=== PATIENT | female | born 1945 | race Caucasian/White ===

== ENCOUNTER 2017-02-15 04:28 | Inpatient (IN) | payer MEDICARE, OTHER ==
[~2017-02-15] VITALS: Ht 167.6 cm; Wt 127.7 kg
[~2017-02-15 04:28] MED LIST: ASPI-496 PO; CLOP75TA52 PO
[2017-02-15] MEDS ORDERED: ALBUTEROL/IPRATROPIUM 2.5MG/0.5MG, 3 ML NPPB ONE (05:00)
[2017-02-15] MEDS ORDERED: SODIUM CHLORIDE FLUSH 10ML SYR IVF ONE (05:00)
[2017-02-15] MEDS ORDERED: CHLO25TA PO (05:10)
[2017-02-15] MEDS ORDERED: LOSA100T6 PO (05:10)
[2017-02-15] MEDS ORDERED: TRAM50TA2 PO (05:10)
[2017-02-15] MEDS ORDERED: MULT-717 PO (05:10)
[2017-02-15] MEDS ORDERED: METH500T7 PO (05:10)
[2017-02-15] MEDS ORDERED: CHLO1CAP PO (05:10)
[2017-02-15] MEDS ORDERED: ATOR40TA78 PO (05:10)
[2017-02-15] MEDS ORDERED: UBID100C41 PO (05:10)
[2017-02-15] MEDS ORDERED: ALLO300T PO (05:10)
[2017-02-15] MEDS ORDERED: CARV12.52 PO (05:10)
[2017-02-15] MEDS ORDERED: POTA20TA14 PO (05:10)
[2017-02-15] MEDS ORDERED: OMEP-110 PO (05:10)
[2017-02-15 05:20] LABS: HEMATOCRIT 36.6 % (34.6-47.8); HEMOGLOBIN 11.7 g/dL (11.7-16.4); WHITE BLOOD COUNT 7.1 x10^3/uL (3.4-10)
[2017-02-15 05:30] LABS: BLOOD UREA NITROGEN 25 mg/dL (7-18)
[2017-02-15] MEDS ORDERED: SODIUM CHLORIDE 0.9% 1,000 ML IV ONE (05:49)
[2017-02-15 06:00] LABS: IS PT STATUS REG ER OR PRE ER? YES
[2017-02-15] MEDS ORDERED: CEFTRIAXONE PMX 1GM/50ML 50 ML IV ONE (07:00)
[2017-02-15] MEDS ORDERED: ENALAPRILAT 1.25 MG/ML, 2ML IVPush PRN (08:30)
[2017-02-15] MEDS ORDERED: OXYcodone IR 5MG TABLET PO PRN (08:30)
[2017-02-15] MEDS ORDERED: hydrALAzine 20 MG/ML, 1ML IVPush PRN (08:30)
[2017-02-15] MEDS ORDERED: ACETAMINOPHEN 325 MG TABLET PO PRN (08:30)
[2017-02-15] MEDS ORDERED: ONDANSETRON 2MG/ML, 2ML IVPush PRN (08:30)
[2017-02-15] MEDS ORDERED: POLYETHYLENE GLYCOL 17 GM PACKET PO PRN (08:30)
[2017-02-15 08:32] VITALS: BP 136/80
[2017-02-15] MEDS ORDERED: TEMPLATE NON-FORMULARY MED. (Ubidecarenone** (Co Q-10**) 100 MG) PO SCH (09:00)
[2017-02-15] MEDS: CLOPIDOGREL 75 MG TABLET PO SCH (09:00)
[2017-02-15] MEDS: CHLORTHALIDONE 25 MG TABLET PO SCH (09:00)
[2017-02-15] MEDS ORDERED: LOSARTAN 50MG TABLET PO SCH (09:00)
[2017-02-15] MEDS: FUROSEMIDE 20 MG/2 ML IV SCH ×2 (11:06→17:05)
[2017-02-15] MEDS: HEPARIN 5,000 UNITS/ML, 1ML SQ SCH ×2 (11:06→23:32)
[2017-02-15] MEDS: FLUTICASONE/VILANTEROL 200-25MCG/INH INH SCH (11:07)
[2017-02-15] MEDS: OMEPRAZOLE 20 MG CAPSULE.DR PO SCH (11:07)
[2017-02-15] MEDS: POTASSIUM CHLORIDE 20 MEQ TAB.ER.PRT PO SCH (11:07)
[2017-02-15] MEDS: SENNA/DOCUSATE TABLET PO SCH (11:07)
[2017-02-15] MEDS: CARVEDILOL 12.5 MG TABLET PO SCH ×2 (11:07→21:00)
[2017-02-15] MEDS: MULTIVITAMINS/MINERALS TABLET PO SCH (11:08)
[2017-02-15] MEDS: ALLOPURINOL 300 MG TABLET PO SCH (11:08)
[2017-02-15] MEDS: METHOCARBAMOL 500 MG TABLET PO SCH ×3 (11:08→21:00)
[2017-02-15] MEDS ORDERED: LOSA50TA6 PO (11:28)
[2017-02-15 13:46] LABS: IS PT STATUS REG ER OR PRE ER? NO
[2017-02-15] MEDS ORDERED: MAGNESIUM SULFATE PMX 2GM/50ML 50 ML IV ONE (14:30)
[2017-02-15] MEDS: [UNRECOGNIZED DRUG - OTHER] PO SCH ×2 (16:00→21:00)
[2017-02-15] MEDS: CHLORDIAZEPOXIDE PO SCH ×2 (16:00→21:00)
[2017-02-15 19:39] LABS: IS PT STATUS REG ER OR PRE ER? NO
[2017-02-15 20:54] VITALS: BP 109/64
[2017-02-15] MEDS: ATORVASTATIN 40 MG TABLET PO SCH (21:00)
[2017-02-16 03:05] VITALS: BP 103/75
[2017-02-16 04:53] LABS: BLOOD UREA NITROGEN 30 mg/dL (7-18)
[2017-02-16 04:54] LABS: HEMATOCRIT 38.1 % (34.6-47.8); HEMOGLOBIN 11.8 g/dL (11.7-16.4); WHITE BLOOD COUNT 8.3 x10^3/uL (3.4-10)
[2017-02-16 04:56] LABS: ASPARTATE AMINO TRANSFERASE 5 U/L (15-37)
[2017-02-16] MEDS: [UNRECOGNIZED DRUG - OTHER] PO SCH ×4 (06:00→21:00)
[2017-02-16] MEDS ORDERED: PNEUMOCOCCAL 23 VACCINE IM-VACC ONE (06:00)
[2017-02-16] MEDS ORDERED: FLU VACC QS2017-18 (36MOS+) UP/PF 0.5 ML IM-VACC ONE (06:00)
[2017-02-16] MEDS: CHLORDIAZEPOXIDE PO SCH ×4 (06:00→21:00)
[2017-02-16] MEDS: HEPARIN 5,000 UNITS/ML, 1ML SQ SCH ×3 (06:08→22:17)
[2017-02-16 06:27] VITALS: BP 97/55
[2017-02-16 08:20] VITALS: BP 105/63
[2017-02-16] MEDS: ALLOPURINOL 300 MG TABLET PO SCH (08:22)
[2017-02-16] MEDS: FLUTICASONE/VILANTEROL 200-25MCG/INH INH SCH (08:22)
[2017-02-16] MEDS: SENNA/DOCUSATE TABLET PO SCH (08:22)
[2017-02-16] MEDS: OMEPRAZOLE 20 MG CAPSULE.DR PO SCH (08:23)
[2017-02-16] MEDS: MULTIVITAMINS/MINERALS TABLET PO SCH (08:23)
[2017-02-16] MEDS: POTASSIUM CHLORIDE 20 MEQ TAB.ER.PRT PO SCH (08:23)
[2017-02-16] MEDS: CLOPIDOGREL 75 MG TABLET PO SCH (08:23)
[2017-02-16] MEDS: FUROSEMIDE 20 MG/2 ML IV SCH ×2 (08:23→17:55)
[2017-02-16] MEDS: CARVEDILOL 12.5 MG TABLET PO SCH ×2 (08:23→22:18)
[2017-02-16] MEDS: METHOCARBAMOL 500 MG TABLET PO SCH (08:23)
[2017-02-16] MEDS: CHLORTHALIDONE 25 MG TABLET PO SCH (08:24)
[2017-02-16] MEDS ORDERED: LOSARTAN 50MG TABLET PO SCH (09:00)
[2017-02-16] MEDS ORDERED: FUROSEMIDE 20 MG/2 ML IV ONE ×2 (10:00→16:30)
[2017-02-16] MEDS ORDERED: NALOXONE 0.4 MG/ML, 1ML ONE (11:07)
[2017-02-16] MEDS ORDERED: MIDAZOLAM 1 MG/ML, 5ML ONE (11:08)
[2017-02-16] MEDS ORDERED: PROPOFOL 10 MG/ML, 100ML IV ONE (11:08)
[2017-02-16] MEDS ORDERED: ETOMIDATE 20 MG/10 ML ONE (11:08)
[2017-02-16] MEDS ORDERED: DOXYCYCLINE 100 MG in DEXTROSE 5% 250 ML IV SCH (13:30)
[2017-02-16] MEDS: GUAIFENESIN ER 600 MG TABLET PO SCH ×2 (15:22→22:18)
[2017-02-16 16:06] VITALS: BP 115/74
[2017-02-16] MEDS ORDERED: FUROSEMIDE 40 MG/4 ML ONE (16:14)
[2017-02-16] MEDS ORDERED: NALOXONE 1 MG/ML, 2ML IVPush ONE (16:30)
[2017-02-16] MEDS ORDERED: NALOXONE 0.4 MG/ML, 1ML IVPush ONE (16:30)
[2017-02-16 16:31] LABS: ABG COLLECTION SITE RIGHT RADIAL; COLLATERAL CIRCULATION TESTING NORMAL
[2017-02-16 16:51] LABS: BLOOD UREA NITROGEN 30 mg/dL (7-18)
[2017-02-16 16:56] LABS: IS PT STATUS REG ER OR PRE ER? NO
[2017-02-16] MEDS ORDERED: NOREPINEPHRINE 1 MG/ML, 4ML ONE (17:13)
[2017-02-16] MEDS ORDERED: PHARMACY MAY ADJ FOR RENAL FX MC SCH (17:30)
[2017-02-16] MEDS ORDERED: LIDOCAINE-MPF 1%, 2ML ENDO PRN (17:30)
[2017-02-16] MEDS ORDERED: ACETAMINOPHEN 650 MG/20.3 ML UDC NG PRN (17:30)
[2017-02-16] MEDS: SODIUM CHLORIDE 0.9% 1,000 ML IV SCH (17:50)
[2017-02-16] MEDS: AMPICILLIN/SULBACTAM 3 GM in SODIUM CHLORIDE 0.9% 100 ML IV SCH ×2 (17:56→23:11)
[2017-02-16] MEDS: methylPREDNISolone SOD SUCC 125 MG/2 ML IVPush SCH (17:57)
[2017-02-16] MEDS: ALBUTEROL/IPRATROPIUM 2.5MG/0.5MG, 3 ML INLINE SCH ×2 (18:43→23:05)
[2017-02-16] MEDS: ATORVASTATIN 40 MG TABLET PO SCH (21:00)
[2017-02-16] MEDS: LOSARTAN 50MG TABLET PO SCH (22:18)
[2017-02-16] MEDS: PROPOFOL 100 ML IV PRN (22:26)
[2017-02-16] MEDS: morphine SULFATE 10 MG/ML, 1ML IVPush PRN (23:11)
[2017-02-17] MEDS: methylPREDNISolone SOD SUCC 125 MG/2 ML IVPush SCH ×3 (01:24→17:17)
[2017-02-17] MEDS: SODIUM CHLORIDE 0.9% 1,000 ML IV SCH (01:24)
[2017-02-17] MEDS: ALBUTEROL/IPRATROPIUM 2.5MG/0.5MG, 3 ML INLINE SCH ×6 (02:16→22:37)
[2017-02-17] MEDS: morphine SULFATE 10 MG/ML, 1ML IVPush PRN ×2 (04:25→16:30)
[2017-02-17 05:13] LABS: ABG COLLECTION SITE LEFT RADIAL; COLLATERAL CIRCULATION TESTING NORMAL
[2017-02-17 05:18] LABS: HEMATOCRIT 35.2 % (34.6-47.8); HEMOGLOBIN 11.3 g/dL (11.7-16.4); WHITE BLOOD COUNT 7.9 x10^3/uL (3.4-10)
[2017-02-17 05:27] LABS: BLOOD UREA NITROGEN 30 mg/dL (7-18)
[2017-02-17] MEDS: AMPICILLIN/SULBACTAM 3 GM in SODIUM CHLORIDE 0.9% 100 ML IV SCH ×4 (05:48→23:21)
[2017-02-17] MEDS: HEPARIN 5,000 UNITS/ML, 1ML SQ SCH ×3 (05:58→21:57)
[2017-02-17] MEDS: [UNRECOGNIZED DRUG - OTHER] PO SCH (05:58)
[2017-02-17] MEDS: CHLORDIAZEPOXIDE PO SCH (05:58)
[2017-02-17] MEDS: PROPOFOL 100 ML IV PRN ×4 (07:08→21:58)
[2017-02-17] MEDS ORDERED: OMEPRAZOLE 20 MG CAPSULE.DR PO SCH (07:30)
[2017-02-17] MEDS ORDERED: OMEPRAZOLE/SOD. BICARB. PACKET PO SCH (07:30)
[2017-02-17] MEDS: FLUTICASONE/VILANTEROL 200-25MCG/INH INH SCH (08:54)
[2017-02-17] MEDS: ALLOPURINOL 300 MG TABLET PO SCH (08:55)
[2017-02-17] MEDS: CLOPIDOGREL 75 MG TABLET PO SCH (08:55)
[2017-02-17] MEDS: CARVEDILOL 12.5 MG TABLET PO SCH ×2 (08:55→20:29)
[2017-02-17] MEDS: LOSARTAN 50MG TABLET PO SCH ×2 (08:56→20:29)
[2017-02-17] MEDS: SENNA 176 MG/5 ML ORAL SOL PO SCH (08:56)
[2017-02-17] MEDS: POTASSIUM CHLORIDE 20 MEQ PACKET NG SCH (08:56)
[2017-02-17] MEDS: DOCUSATE 50 MG/5 ML, 10ML UDC PO SCH (08:56)
[2017-02-17] MEDS ORDERED: MAGNESIUM SULFATE 1 GM, THIAMINE 100 MG, FOLIC ACID 1 MG, MVI ADULT 10 ML in SODIUM CHL... IV SCH (09:00)
[2017-02-17] MEDS ORDERED: DIAZEPAM 5 MG/ML, 10ML VIAL IVPush SCH (09:00)
[2017-02-17] MEDS ORDERED: MULTIVITAMIN LIQUID NG SCH (09:00)
[2017-02-17] MEDS ORDERED: GUAIFENESIN 100 MG/5 ML, 10ML UDC PO SCH (09:00)
[2017-02-17] MEDS ORDERED: POTASSIUM CHLORIDE 20 MEQ PACKET PO SCH (09:00)
[2017-02-17] MEDS: PANTOPRAZOLE 40 MG IV IVPush SCH (09:26)
[2017-02-17] MEDS: GUAIFENESIN 100 MG/5 ML, 10ML UDC NG SCH ×3 (09:27→20:29)
[2017-02-17] MEDS: SCOPOLAMINE 1MG PATCH TD SCH (10:09)
[2017-02-17 17:00] VITALS: BP 127/54
[2017-02-17] MEDS: ATORVASTATIN 40 MG TABLET PO SCH (20:29)
[2017-02-18] MEDS: PROPOFOL 100 ML IV PRN ×8 (00:35→23:32)
[2017-02-18] MEDS: methylPREDNISolone SOD SUCC 125 MG/2 ML IVPush SCH ×3 (01:37→18:09)
[2017-02-18] MEDS: morphine SULFATE 10 MG/ML, 1ML IVPush PRN ×2 (01:41→21:57)
[2017-02-18] MEDS ORDERED: SODIUM CHLORIDE 0.9% 1,000 ML IV SCH ×2 (02:00→08:30)
[2017-02-18] MEDS: ALBUTEROL/IPRATROPIUM 2.5MG/0.5MG, 3 ML INLINE SCH ×6 (02:42→22:10)
[2017-02-18 04:36] LABS: ABG COLLECTION SITE LEFT RADIAL; COLLATERAL CIRCULATION TESTING NORMAL
[2017-02-18 04:42] LABS: HEMATOCRIT 35.1 % (34.6-47.8); HEMOGLOBIN 11.1 g/dL (11.7-16.4); WHITE BLOOD COUNT 10.2 x10^3/uL (3.4-10)
[2017-02-18 04:52] LABS: BLOOD UREA NITROGEN 34 mg/dL (7-18)
[2017-02-18 05:00] VITALS: BP 127/58
[2017-02-18] MEDS: AMPICILLIN/SULBACTAM 3 GM in SODIUM CHLORIDE 0.9% 100 ML IV SCH ×4 (05:49→23:30)
[2017-02-18] MEDS: HEPARIN 5,000 UNITS/ML, 1ML SQ SCH ×3 (05:49→21:59)
[2017-02-18] MEDS: FLUTICASONE/VILANTEROL 200-25MCG/INH INH SCH (09:00)
[2017-02-18] MEDS: PANTOPRAZOLE 40 MG IV IVPush SCH (09:46)
[2017-02-18] MEDS: DOCUSATE 50 MG/5 ML, 10ML UDC PO SCH (09:47)
[2017-02-18] MEDS: GUAIFENESIN 100 MG/5 ML, 10ML UDC NG SCH ×3 (09:47→21:09)
[2017-02-18] MEDS: CARVEDILOL 12.5 MG TABLET PO SCH ×2 (09:47→21:10)
[2017-02-18] MEDS: POTASSIUM CHLORIDE 20 MEQ PACKET NG SCH (09:47)
[2017-02-18] MEDS: LOSARTAN 50MG TABLET PO SCH ×2 (09:48→21:10)
[2017-02-18] MEDS: CLOPIDOGREL 75 MG TABLET PO SCH (09:49)
[2017-02-18] MEDS: SENNA 176 MG/5 ML ORAL SOL PO SCH (09:50)
[2017-02-18] MEDS: ALLOPURINOL 300 MG TABLET PO SCH (09:50)
[2017-02-18] MEDS: ATORVASTATIN 40 MG TABLET PO SCH (21:10)
[2017-02-19] MEDS: methylPREDNISolone SOD SUCC 125 MG/2 ML IVPush SCH ×3 (00:37→17:14)
[2017-02-19] MEDS: PROPOFOL 100 ML IV PRN ×6 (01:22→22:54)
[2017-02-19] MEDS: ALBUTEROL/IPRATROPIUM 2.5MG/0.5MG, 3 ML INLINE SCH ×6 (02:20→22:02)
[2017-02-19] MEDS: morphine SULFATE 10 MG/ML, 1ML IVPush PRN ×2 (02:57→08:22)
[2017-02-19 04:25] LABS: ABG COLLECTION SITE RIGHT RADIAL
[2017-02-19 04:26] LABS: COLLATERAL CIRCULATION TESTING NORMAL
[2017-02-19 04:27] LABS: HEMATOCRIT 36.3 % (34.6-47.8); HEMOGLOBIN 11.5 g/dL (11.7-16.4); WHITE BLOOD COUNT 8.8 x10^3/uL (3.4-10)
[2017-02-19 04:41] VITALS: BP 138/65
[2017-02-19 04:52] LABS: BLOOD UREA NITROGEN 39 mg/dL (7-18)
[2017-02-19] MEDS: AMPICILLIN/SULBACTAM 3 GM in SODIUM CHLORIDE 0.9% 100 ML IV SCH ×4 (05:27→23:23)
[2017-02-19] MEDS: HEPARIN 5,000 UNITS/ML, 1ML SQ SCH ×3 (05:27→22:21)
[2017-02-19] MEDS: SENNA 176 MG/5 ML ORAL SOL PO SCH (08:22)
[2017-02-19] MEDS: GUAIFENESIN 100 MG/5 ML, 10ML UDC NG SCH ×3 (08:22→21:08)
[2017-02-19] MEDS: PANTOPRAZOLE 40 MG IV IVPush SCH (08:22)
[2017-02-19] MEDS: DOCUSATE 50 MG/5 ML, 10ML UDC PO SCH (08:22)
[2017-02-19] MEDS: LOSARTAN 50MG TABLET PO SCH ×2 (08:23→21:09)
[2017-02-19] MEDS: CARVEDILOL 12.5 MG TABLET PO SCH ×2 (08:23→21:08)
[2017-02-19] MEDS: POTASSIUM CHLORIDE 20 MEQ PACKET NG SCH (08:23)
[2017-02-19] MEDS: CLOPIDOGREL 75 MG TABLET PO SCH (08:23)
[2017-02-19] MEDS: ALLOPURINOL 300 MG TABLET PO SCH (08:25)
[2017-02-19] MEDS ORDERED: FUROSEMIDE 20 MG/2 ML IV ONE (11:30)
[2017-02-19] MEDS: ATORVASTATIN 40 MG TABLET PO SCH (21:08)
[2017-02-19] MEDS: METHOCARBAMOL 500 MG TABLET PO PRN (21:09)
[2017-02-20] MEDS: methylPREDNISolone SOD SUCC 125 MG/2 ML IVPush SCH ×3 (01:21→17:08)
[2017-02-20] MEDS: ALBUTEROL/IPRATROPIUM 2.5MG/0.5MG, 3 ML INLINE SCH ×6 (02:24→22:21)
[2017-02-20] MEDS: PROPOFOL 100 ML IV PRN ×6 (03:14→21:59)
[2017-02-20 04:00] VITALS: BP 129/63
[2017-02-20 04:41] LABS: HEMATOCRIT 37.1 % (34.6-47.8); HEMOGLOBIN 11.9 g/dL (11.7-16.4); WHITE BLOOD COUNT 9.3 x10^3/uL (3.4-10)
[2017-02-20 04:44] LABS: ABG COLLECTION SITE LEFT RADIAL; COLLATERAL CIRCULATION TESTING NORMAL
[2017-02-20 04:52] LABS: BLOOD UREA NITROGEN 51 mg/dL (7-18)
[2017-02-20] MEDS: morphine SULFATE 10 MG/ML, 1ML IVPush PRN (05:13)
[2017-02-20] MEDS: AMPICILLIN/SULBACTAM 3 GM in SODIUM CHLORIDE 0.9% 100 ML IV SCH ×3 (05:13→18:25)
[2017-02-20] MEDS: HEPARIN 5,000 UNITS/ML, 1ML SQ SCH ×3 (06:15→22:05)
[2017-02-20] MEDS: FUROSEMIDE 20 MG/2 ML IV SCH ×2 (08:43→21:32)
[2017-02-20] MEDS: CARVEDILOL 12.5 MG TABLET PO SCH ×2 (08:43→21:33)
[2017-02-20] MEDS: DOCUSATE 50 MG/5 ML, 10ML UDC PO SCH (08:43)
[2017-02-20] MEDS: GUAIFENESIN 100 MG/5 ML, 10ML UDC NG SCH ×3 (08:43→21:32)
[2017-02-20] MEDS: ALLOPURINOL 300 MG TABLET PO SCH (08:43)
[2017-02-20] MEDS: LOSARTAN 50MG TABLET PO SCH ×2 (08:44→21:33)
[2017-02-20] MEDS: SENNA 176 MG/5 ML ORAL SOL PO SCH (08:44)
[2017-02-20] MEDS: PANTOPRAZOLE 40 MG IV IVPush SCH (08:44)
[2017-02-20] MEDS: CLOPIDOGREL 75 MG TABLET PO SCH (08:45)
[2017-02-20] MEDS: SCOPOLAMINE 1MG PATCH TD SCH (08:45)
[2017-02-20] MEDS: ALBUMIN HUMAN 25% 100 ML IV SCH ×2 (08:46→22:05)
[2017-02-20] MEDS: POTASSIUM CHLORIDE 20 MEQ PACKET PO SCH ×2 (08:47→22:05)
[2017-02-20] MEDS: ATORVASTATIN 40 MG TABLET PO SCH (21:33)
[2017-02-21] MEDS: AMPICILLIN/SULBACTAM 3 GM in SODIUM CHLORIDE 0.9% 100 ML IV SCH ×5 (00:37→23:23)
[2017-02-21] MEDS: methylPREDNISolone SOD SUCC 125 MG/2 ML IVPush SCH ×3 (00:38→18:21)
[2017-02-21] MEDS: PROPOFOL 100 ML IV PRN ×8 (01:05→22:18)
[2017-02-21] MEDS: ALBUTEROL/IPRATROPIUM 2.5MG/0.5MG, 3 ML INLINE SCH ×6 (02:52→22:21)
[2017-02-21] MEDS: morphine SULFATE 10 MG/ML, 1ML IVPush PRN ×2 (04:27→20:37)
[2017-02-21 05:17] LABS: ABG COLLECTION SITE LEFT RADIAL; COLLATERAL CIRCULATION TESTING NORMAL
[2017-02-21] MEDS: HEPARIN 5,000 UNITS/ML, 1ML SQ SCH ×3 (05:34→22:07)
[2017-02-21 05:50] LABS: HEMATOCRIT 36.6 % (34.6-47.8); HEMOGLOBIN 11.5 g/dL (11.7-16.4); WHITE BLOOD COUNT 6.7 x10^3/uL (3.4-10)
[2017-02-21 05:57] LABS: BLOOD UREA NITROGEN 59 mg/dL (7-18)
[2017-02-21] MEDS: FUROSEMIDE 20 MG/2 ML IV SCH ×2 (09:47→22:06)
[2017-02-21] MEDS: CLOPIDOGREL 75 MG TABLET PO SCH (09:47)
[2017-02-21] MEDS: CARVEDILOL 12.5 MG TABLET PO SCH ×2 (09:48→22:06)
[2017-02-21] MEDS: ALLOPURINOL 300 MG TABLET PO SCH (09:48)
[2017-02-21] MEDS: LOSARTAN 50MG TABLET PO SCH ×2 (09:49→22:06)
[2017-02-21] MEDS: GUAIFENESIN 100 MG/5 ML, 10ML UDC NG SCH ×3 (09:49→22:07)
[2017-02-21] MEDS: ALBUMIN HUMAN 25% 100 ML IV SCH ×2 (09:52→20:37)
[2017-02-21] MEDS: DOCUSATE 50 MG/5 ML, 10ML UDC PO SCH (09:53)
[2017-02-21] MEDS: SENNA 176 MG/5 ML ORAL SOL PO SCH (09:53)
[2017-02-21] MEDS: PANTOPRAZOLE 40 MG IV IVPush SCH (10:24)
[2017-02-21] MEDS: ATORVASTATIN 40 MG TABLET PO SCH (22:06)
[2017-02-22] MEDS: methylPREDNISolone SOD SUCC 125 MG/2 ML IVPush SCH ×3 (01:43→17:49)
[2017-02-22] MEDS: PROPOFOL 100 ML IV PRN ×7 (01:43→21:18)
[2017-02-22] MEDS: ALBUTEROL/IPRATROPIUM 2.5MG/0.5MG, 3 ML INLINE SCH ×6 (03:00→22:08)
[2017-02-22 05:00] VITALS: BP 123/67
[2017-02-22 05:02] LABS: ABG COLLECTION SITE RIGHT RADIAL; COLLATERAL CIRCULATION TESTING NORMAL
[2017-02-22 05:10] LABS: HEMATOCRIT 36.5 % (34.6-47.8); HEMOGLOBIN 11.5 g/dL (11.7-16.4); WHITE BLOOD COUNT 8.1 x10^3/uL (3.4-10)
[2017-02-22 05:14] LABS: BLOOD UREA NITROGEN 63 mg/dL (7-18)
[2017-02-22] MEDS: AMPICILLIN/SULBACTAM 3 GM in SODIUM CHLORIDE 0.9% 100 ML IV SCH ×4 (05:22→23:15)
[2017-02-22] MEDS: HEPARIN 5,000 UNITS/ML, 1ML SQ SCH ×3 (06:03→21:45)
[2017-02-22] MEDS: DOCUSATE 50 MG/5 ML, 10ML UDC PO SCH (09:04)
[2017-02-22] MEDS: CARVEDILOL 12.5 MG TABLET PO SCH ×2 (09:04→21:46)
[2017-02-22] MEDS: GUAIFENESIN 100 MG/5 ML, 10ML UDC NG SCH ×3 (09:04→21:46)
[2017-02-22] MEDS: PANTOPRAZOLE 40 MG IV IVPush SCH (09:04)
[2017-02-22] MEDS: CLOPIDOGREL 75 MG TABLET PO SCH (09:05)
[2017-02-22] MEDS: LOSARTAN 50MG TABLET PO SCH ×2 (09:05→21:46)
[2017-02-22] MEDS: ALLOPURINOL 300 MG TABLET PO SCH (09:05)
[2017-02-22] MEDS: SENNA 176 MG/5 ML ORAL SOL PO SCH (09:06)
[2017-02-22] MEDS ORDERED: LIDOCAINE 2%, 20ML ONE (09:40)
[2017-02-22] MEDS: BISACODYL 10 MG SUPP PR PRN (10:06)
[2017-02-22] MEDS: METHOCARBAMOL 500 MG TABLET PO PRN (15:38)
[2017-02-22] MEDS: ATORVASTATIN 40 MG TABLET PO SCH (21:46)
[2017-02-23] MEDS: PROPOFOL 100 ML IV PRN ×2 (01:17→04:32)
[2017-02-23] MEDS: methylPREDNISolone SOD SUCC 125 MG/2 ML IVPush SCH ×2 (01:37→17:45)
[2017-02-23] MEDS: ALBUTEROL/IPRATROPIUM 2.5MG/0.5MG, 3 ML INLINE SCH ×3 (02:20→10:13)
[2017-02-23 05:17] LABS: ABG COLLECTION SITE LEFT RADIAL; COLLATERAL CIRCULATION TESTING NORMAL
[2017-02-23 05:29] LABS: BLOOD UREA NITROGEN 74 mg/dL (7-18)
[2017-02-23] MEDS: AMPICILLIN/SULBACTAM 3 GM in SODIUM CHLORIDE 0.9% 100 ML IV SCH ×4 (05:32→23:19)
[2017-02-23 05:35] LABS: HEMATOCRIT 37.8 % (34.6-47.8); WHITE BLOOD COUNT 15.2 x10^3/uL (3.4-10)
[2017-02-23 06:00] VITALS: BP 92/54
[2017-02-23] MEDS: HEPARIN 5,000 UNITS/ML, 1ML SQ SCH ×3 (06:21→22:02)
[2017-02-23] MEDS: PANTOPRAZOLE 40 MG IV IVPush SCH (09:46)
[2017-02-23] MEDS: LOSARTAN 50MG TABLET PO SCH ×2 (09:46→22:03)
[2017-02-23] MEDS: SENNA 176 MG/5 ML ORAL SOL PO SCH (09:46)
[2017-02-23] MEDS: DOCUSATE 50 MG/5 ML, 10ML UDC PO SCH (09:46)
[2017-02-23] MEDS: GUAIFENESIN 100 MG/5 ML, 10ML UDC NG SCH ×3 (09:46→22:03)
[2017-02-23] MEDS: CARVEDILOL 12.5 MG TABLET PO SCH ×2 (09:47→22:02)
[2017-02-23] MEDS: CLOPIDOGREL 75 MG TABLET PO SCH (09:47)
[2017-02-23] MEDS: ALLOPURINOL 300 MG TABLET PO SCH (09:47)
[2017-02-23] MEDS: SCOPOLAMINE 1MG PATCH TD SCH (09:48)
[2017-02-23] MEDS: METHOCARBAMOL 500 MG TABLET PO PRN (09:52)
[2017-02-23] MEDS: ALBUTEROL/IPRATROPIUM 2.5MG/0.5MG, 3 ML NPPB SCH ×6 (10:13→23:12)
[2017-02-23] MEDS: BISACODYL 10 MG SUPP PR PRN (14:10)
[2017-02-23] MEDS: ATORVASTATIN 40 MG TABLET PO SCH (22:02)
[2017-02-24] MEDS: METHOCARBAMOL 500 MG TABLET PO PRN ×2 (02:05→20:48)
[2017-02-24] MEDS: ALBUTEROL/IPRATROPIUM 2.5MG/0.5MG, 3 ML NPPB SCH ×6 (02:18→23:03)
[2017-02-24 04:44] LABS: ABG COLLECTION SITE RIGHT RADIAL; COLLATERAL CIRCULATION TESTING NORMAL
[2017-02-24 04:46] LABS: HEMATOCRIT 39.8 % (34.6-47.8); HEMOGLOBIN 12.6 g/dL (11.7-16.4); WHITE BLOOD COUNT 12.1 x10^3/uL (3.4-10)
[2017-02-24 04:58] LABS: BLOOD UREA NITROGEN 84 mg/dL (7-18)
[2017-02-24 05:02] LABS: ASPARTATE AMINO TRANSFERASE 23 U/L (15-37)
[2017-02-24] MEDS: AMPICILLIN/SULBACTAM 3 GM in SODIUM CHLORIDE 0.9% 100 ML IV SCH ×3 (05:25→17:55)
[2017-02-24 06:23] VITALS: BP 103/51
[2017-02-24] MEDS: HEPARIN 5,000 UNITS/ML, 1ML SQ SCH ×3 (06:34→22:42)
[2017-02-24] MEDS: methylPREDNISolone SOD SUCC 125 MG/2 ML IVPush SCH (06:34)
[2017-02-24] MEDS: GUAIFENESIN 100 MG/5 ML, 10ML UDC NG SCH ×3 (10:18→20:48)
[2017-02-24] MEDS: PANTOPRAZOLE 40 MG IV IVPush SCH (10:18)
[2017-02-24] MEDS: CARVEDILOL 12.5 MG TABLET PO SCH ×2 (10:18→20:48)
[2017-02-24] MEDS: DOCUSATE 50 MG/5 ML, 10ML UDC PO SCH (10:18)
[2017-02-24] MEDS: LOSARTAN 50MG TABLET PO SCH ×2 (10:19→20:48)
[2017-02-24] MEDS: CLOPIDOGREL 75 MG TABLET PO SCH (10:19)
[2017-02-24] MEDS: SENNA 176 MG/5 ML ORAL SOL PO SCH (10:19)
[2017-02-24] MEDS: ALLOPURINOL 300 MG TABLET PO SCH (10:19)
[2017-02-24] MEDS: BISACODYL 10 MG SUPP PR PRN (12:23)
[2017-02-24] MEDS ORDERED: ENALAPRILAT 1.25 MG/ML, 2ML IVPush PRN (19:30)
[2017-02-24] MEDS ORDERED: PHARMACY MAY ADJ FOR RENAL FX MC SCH (19:30)
[2017-02-24] MEDS ORDERED: ACETAMINOPHEN 325 MG TABLET PO PRN (19:30)
[2017-02-24] MEDS ORDERED: ACETAMINOPHEN 650 MG/20.3 ML UDC NG PRN (19:30)
[2017-02-24] MEDS ORDERED: LIDOCAINE-MPF 1%, 2ML ENDO PRN (19:30)
[2017-02-24] MEDS: morphine SULFATE 10 MG/ML, 1ML IVPush PRN (20:44)
[2017-02-24] MEDS: ATORVASTATIN 40 MG TABLET PO SCH (20:48)
[2017-02-25] MEDS: AMPICILLIN/SULBACTAM 3 GM in SODIUM CHLORIDE 0.9% 100 ML IV SCH ×2 (00:07→06:18)
[2017-02-25] MEDS: ALBUTEROL/IPRATROPIUM 2.5MG/0.5MG, 3 ML NPPB SCH ×5 (02:37→19:46)
[2017-02-25 04:54] LABS: ABG COLLECTION SITE RIGHT RADIAL; COLLATERAL CIRCULATION TESTING NORMAL
[2017-02-25 04:59] LABS: HEMATOCRIT 37.2 % (34.6-47.8); HEMOGLOBIN 11.7 g/dL (11.7-16.4); WHITE BLOOD COUNT 11.5 x10^3/uL (3.4-10)
[2017-02-25 05:02] LABS: BLOOD UREA NITROGEN 91 mg/dL (7-18)
[2017-02-25 05:10] VITALS: BP 107/48
[2017-02-25] MEDS: methylPREDNISolone SOD SUCC 125 MG/2 ML IVPush SCH (06:18)
[2017-02-25] MEDS: HEPARIN 5,000 UNITS/ML, 1ML SQ SCH ×2 (09:34→16:15)
[2017-02-25] MEDS: GUAIFENESIN 100 MG/5 ML, 10ML UDC NG SCH ×3 (09:34→20:55)
[2017-02-25] MEDS: PANTOPRAZOLE 40 MG IV IVPush SCH (09:34)
[2017-02-25] MEDS: ALLOPURINOL 300 MG TABLET PO SCH (09:35)
[2017-02-25] MEDS: DOCUSATE 50 MG/5 ML, 10ML UDC PO SCH (09:35)
[2017-02-25] MEDS: CLOPIDOGREL 75 MG TABLET PO SCH (09:35)
[2017-02-25] MEDS: METHOCARBAMOL 500 MG TABLET PO PRN ×2 (09:35→16:15)
[2017-02-25] MEDS: CARVEDILOL 6.25 MG TABLET PO SCH ×2 (09:36→20:54)
[2017-02-25] MEDS: SENNA 176 MG/5 ML ORAL SOL PO SCH (09:36)
[2017-02-25] MEDS: LOSARTAN 25MG TABLET PO SCH ×2 (09:36→20:55)
[2017-02-25] MEDS: ATORVASTATIN 40 MG TABLET PO SCH (20:54)
[2017-02-26] MEDS: HEPARIN 5,000 UNITS/ML, 1ML SQ SCH ×3 (00:45→16:55)
[2017-02-26] MEDS: ALBUTEROL/IPRATROPIUM 2.5MG/0.5MG, 3 ML NPPB SCH ×7 (03:21→22:00)
[2017-02-26 04:30] LABS: ABG COLLECTION SITE RIGHT BRACHIAL
[2017-02-26 04:44] LABS: HEMATOCRIT 34.5 % (34.6-47.8); HEMOGLOBIN 10.9 g/dL (11.7-16.4); WHITE BLOOD COUNT 10.1 x10^3/uL (3.4-10)
[2017-02-26 04:45] LABS: BLOOD UREA NITROGEN 87 mg/dL (7-18)
[2017-02-26 06:00] VITALS: BP 117/54
[2017-02-26] MEDS: methylPREDNISolone SOD SUCC 125 MG/2 ML IVPush SCH (06:35)
[2017-02-26] MEDS: SENNA 176 MG/5 ML ORAL SOL PO SCH (08:49)
[2017-02-26] MEDS: PANTOPRAZOLE 40 MG IV IVPush SCH (08:49)
[2017-02-26] MEDS: GUAIFENESIN 100 MG/5 ML, 10ML UDC NG SCH ×3 (08:49→21:07)
[2017-02-26] MEDS: DOCUSATE 50 MG/5 ML, 10ML UDC PO SCH (08:49)
[2017-02-26] MEDS: LOSARTAN 25MG TABLET PO SCH ×2 (08:50→21:06)
[2017-02-26] MEDS: CLOPIDOGREL 75 MG TABLET PO SCH (08:50)
[2017-02-26] MEDS: ALLOPURINOL 300 MG TABLET PO SCH (08:50)
[2017-02-26] MEDS: CARVEDILOL 6.25 MG TABLET PO SCH ×2 (08:50→21:06)
[2017-02-26] MEDS: VALACYCLOVIR 500MG TABLET PO SCH ×2 (11:03→21:07)
[2017-02-26] MEDS: METHOCARBAMOL 500 MG TABLET PO PRN ×2 (11:13→17:05)
[2017-02-26] MEDS: ATORVASTATIN 40 MG TABLET PO SCH (21:06)
[2017-02-27] MEDS: HEPARIN 5,000 UNITS/ML, 1ML SQ SCH ×3 (00:51→16:06)
[2017-02-27] MEDS: ALBUTEROL/IPRATROPIUM 2.5MG/0.5MG, 3 ML NPPB SCH ×6 (01:45→23:30)
[2017-02-27 04:35] LABS: ABG COLLECTION SITE RIGHT BRACHIAL
[2017-02-27 04:38] LABS: HEMATOCRIT 36.2 % (34.6-47.8); HEMOGLOBIN 11.2 g/dL (11.7-16.4); WHITE BLOOD COUNT 12.7 x10^3/uL (3.4-10)
[2017-02-27 04:46] LABS: BLOOD UREA NITROGEN 68 mg/dL (7-18)
[2017-02-27 06:00] VITALS: BP 105/52
[2017-02-27] MEDS ORDERED: methylPREDNISolone SOD SUCC 125 MG/2 ML IVPush SCH (06:30)
[2017-02-27] MEDS: VALACYCLOVIR 500MG TABLET PO SCH ×2 (07:50→21:06)
[2017-02-27] MEDS: SENNA 176 MG/5 ML ORAL SOL PO SCH (07:51)
[2017-02-27] MEDS: ALLOPURINOL 300 MG TABLET PO SCH (07:51)
[2017-02-27] MEDS: CARVEDILOL 6.25 MG TABLET PO SCH ×2 (07:51→21:06)
[2017-02-27] MEDS: DOCUSATE 50 MG/5 ML, 10ML UDC PO SCH (07:51)
[2017-02-27] MEDS: LOSARTAN 25MG TABLET PO SCH ×2 (07:51→21:05)
[2017-02-27] MEDS: PANTOPRAZOLE 40 MG IV IVPush SCH (07:51)
[2017-02-27] MEDS: GUAIFENESIN 100 MG/5 ML, 10ML UDC NG SCH ×3 (07:51→21:05)
[2017-02-27] MEDS: CLOPIDOGREL 75 MG TABLET PO SCH (07:51)
[2017-02-27] MEDS ORDERED: FUROSEMIDE 20 MG/2 ML IV ONE (10:00)
[2017-02-27] MEDS ORDERED: ALBUMIN HUMAN 25% 100 ML IV ONE (10:00)
[2017-02-27] MEDS: BISACODYL 10 MG SUPP PR PRN (16:19)
[2017-02-27] MEDS: ATORVASTATIN 40 MG TABLET PO SCH (21:05)
[2017-02-28] MEDS: HEPARIN 5,000 UNITS/ML, 1ML SQ SCH ×3 (01:04→17:02)
[2017-02-28] MEDS: morphine SULFATE 10 MG/ML, 1ML IVPush PRN ×2 (01:14→21:26)
[2017-02-28] MEDS: ALBUTEROL/IPRATROPIUM 2.5MG/0.5MG, 3 ML NPPB SCH ×6 (03:26→23:23)
[2017-02-28 05:01] LABS: HEMATOCRIT 33.5 % (34.6-47.8); HEMOGLOBIN 10.5 g/dL (11.7-16.4); WHITE BLOOD COUNT 11.2 x10^3/uL (3.4-10)
[2017-02-28 05:09] LABS: BLOOD UREA NITROGEN 60 mg/dL (7-18)
[2017-02-28 06:00] VITALS: BP 142/58
[2017-02-28 06:27] LABS: ABG COLLECTION SITE RIGHT RADIAL; COLLATERAL CIRCULATION TESTING NORMAL
[2017-02-28] MEDS ORDERED: methylPREDNISolone SOD SUCC 40 MG/ML IVPush SCH (06:30)
[2017-02-28] MEDS ORDERED: FUROSEMIDE 20 MG/2 ML IV ONE (08:30)
[2017-02-28] MEDS ORDERED: ALBUMIN HUMAN 25% 100 ML IV ONE (08:30)
[2017-02-28] MEDS: SENNA 176 MG/5 ML ORAL SOL PO SCH (09:13)
[2017-02-28] MEDS: PANTOPRAZOLE 40 MG IV IVPush SCH (09:13)
[2017-02-28] MEDS: CLOPIDOGREL 75 MG TABLET PO SCH (09:14)
[2017-02-28] MEDS: GUAIFENESIN 100 MG/5 ML, 10ML UDC NG SCH ×3 (09:14→20:45)
[2017-02-28] MEDS: DOCUSATE 50 MG/5 ML, 10ML UDC PO SCH (09:14)
[2017-02-28] MEDS: VALACYCLOVIR 500MG TABLET PO SCH ×2 (09:14→20:46)
[2017-02-28] MEDS: ALLOPURINOL 300 MG TABLET PO SCH (09:14)
[2017-02-28] MEDS: CARVEDILOL 6.25 MG TABLET PO SCH ×2 (09:15→20:46)
[2017-02-28] MEDS: LOSARTAN 25MG TABLET PO SCH ×2 (09:15→20:46)
[2017-02-28] MEDS: METHOCARBAMOL 500 MG TABLET PO PRN (20:46)
[2017-02-28] MEDS: ATORVASTATIN 40 MG TABLET PO SCH (20:46)
[2017-03-01] MEDS: HEPARIN 5,000 UNITS/ML, 1ML SQ SCH ×3 (00:49→17:15)
[2017-03-01] MEDS: morphine SULFATE 10 MG/ML, 1ML IVPush PRN (02:32)
[2017-03-01] MEDS: ALBUTEROL/IPRATROPIUM 2.5MG/0.5MG, 3 ML NPPB SCH ×6 (03:47→22:15)
[2017-03-01 05:27] VITALS: BP 115/52
[2017-03-01 05:54] LABS: ABG COLLECTION SITE RIGHT BRACHIAL
[2017-03-01 06:03] LABS: BLOOD UREA NITROGEN 68 mg/dL (7-18)
[2017-03-01 06:27] LABS: HEMATOCRIT 33.3 % (34.6-47.8); HEMOGLOBIN 10.7 g/dL (11.7-16.4); WHITE BLOOD COUNT 12.2 x10^3/uL (3.4-10)
[2017-03-01] MEDS: ALLOPURINOL 300 MG TABLET PO SCH (09:37)
[2017-03-01] MEDS: VALACYCLOVIR 500MG TABLET PO SCH ×2 (09:37→20:42)
[2017-03-01] MEDS: GUAIFENESIN 100 MG/5 ML, 10ML UDC NG SCH ×3 (09:37→20:41)
[2017-03-01] MEDS: CLOPIDOGREL 75 MG TABLET PO SCH (09:37)
[2017-03-01] MEDS: SENNA 176 MG/5 ML ORAL SOL PO SCH (09:37)
[2017-03-01] MEDS: DOCUSATE 50 MG/5 ML, 10ML UDC PO SCH (09:37)
[2017-03-01] MEDS: LOSARTAN 25MG TABLET PO SCH ×2 (09:37→20:41)
[2017-03-01] MEDS: CARVEDILOL 6.25 MG TABLET PO SCH ×2 (09:39→20:41)
[2017-03-01] MEDS ORDERED: FUROSEMIDE 20 MG/2 ML IV ONE (11:00)
[2017-03-01] MEDS ORDERED: ALBUMIN HUMAN 25% 100 ML IV ONE (11:00)
[2017-03-01] MEDS: ATORVASTATIN 40 MG TABLET PO SCH (20:41)
[2017-03-01] MEDS: METHOCARBAMOL 500 MG TABLET PO PRN (20:42)
[2017-03-01] MEDS: ZOLPIDEM 10MG TABLET PO PRN (23:47)
[2017-03-02] MEDS: HEPARIN 5,000 UNITS/ML, 1ML SQ SCH ×3 (01:03→16:30)
[2017-03-02] MEDS: ALBUTEROL/IPRATROPIUM 2.5MG/0.5MG, 3 ML NPPB SCH ×4 (02:00→21:00)
[2017-03-02] MEDS ORDERED: LABETALOL 5MG/ML, 20ML ONE (02:20)
[2017-03-02] MEDS ORDERED: LABETALOL 5MG/ML, 20ML IVPush ONE (02:30)
[2017-03-02] MEDS ORDERED: AMIODARONE 900 MG in DEXTROSE 5% 482 ML IV PRN (02:30)
[2017-03-02] MEDS ORDERED: AMIODARONE 150 MG in DEXTROSE 5% 100 ML IV ONE (02:30)
[2017-03-02] MEDS ORDERED: FILTER 0.22 MICRON IV PRN (03:00)
[2017-03-02 04:50] LABS: HEMATOCRIT 32.6 % (34.6-47.8); HEMOGLOBIN 10.3 g/dL (11.7-16.4); WHITE BLOOD COUNT 10.4 x10^3/uL (3.4-10)
[2017-03-02 05:01] LABS: BLOOD UREA NITROGEN 54 mg/dL (7-18)
[2017-03-02 05:51] VITALS: BP 115/67
[2017-03-02 06:08] LABS: ABG COLLECTION SITE RIGHT RADIAL; COLLATERAL CIRCULATION TESTING NORMAL
[2017-03-02] MEDS: DOCUSATE 50 MG/5 ML, 10ML UDC PO SCH (09:00)
[2017-03-02] MEDS: SENNA 176 MG/5 ML ORAL SOL PO SCH (09:00)
[2017-03-02] MEDS: SENNOSIDES 8.6 MG TABLET PO SCH (09:37)
[2017-03-02] MEDS: GUAIFENESIN 100 MG/5 ML, 10ML UDC NG SCH ×3 (09:44→20:52)
[2017-03-02] MEDS: ALLOPURINOL 300 MG TABLET PO SCH (09:44)
[2017-03-02] MEDS: VALACYCLOVIR 500MG TABLET PO SCH ×2 (09:44→20:53)
[2017-03-02] MEDS: CARVEDILOL 6.25 MG TABLET PO SCH ×2 (09:45→20:53)
[2017-03-02] MEDS: CLOPIDOGREL 75 MG TABLET PO SCH (09:45)
[2017-03-02] MEDS: LOSARTAN 25MG TABLET PO SCH ×2 (09:45→20:53)
[2017-03-02] MEDS: ALBUMIN HUMAN 25% 100 ML IV SCH (11:35)
[2017-03-02] MEDS: DOCUSATE 100 MG CAPSULE PO SCH (12:27)
[2017-03-02] MEDS: FUROSEMIDE 20 MG/2 ML IV SCH (12:35)
[2017-03-02] MEDS: ATORVASTATIN 40 MG TABLET PO SCH (20:53)
[2017-03-02] MEDS: METHOCARBAMOL 500 MG TABLET PO PRN (20:53)
[2017-03-03] MEDS: HEPARIN 5,000 UNITS/ML, 1ML SQ SCH ×3 (01:17→16:41)
[2017-03-03] MEDS: ZOLPIDEM 10MG TABLET PO PRN (01:33)
[2017-03-03] MEDS: ALBUTEROL/IPRATROPIUM 2.5MG/0.5MG, 3 ML NPPB SCH ×4 (03:15→20:03)
[2017-03-03 05:29] VITALS: BP 109/53
[2017-03-03] MEDS: SENNOSIDES 8.6 MG TABLET PO SCH (09:00)
[2017-03-03] MEDS: DOCUSATE 100 MG CAPSULE PO SCH (09:00)
[2017-03-03 09:09] LABS: ABG COLLECTION SITE RIGHT RADIAL; COLLATERAL CIRCULATION TESTING NORMAL
[2017-03-03 09:11] LABS: HEMOGLOBIN 10.7 g/dL (11.7-16.4); WHITE BLOOD COUNT 8.5 x10^3/uL (3.4-10)
[2017-03-03] MEDS: GUAIFENESIN 100 MG/5 ML, 10ML UDC NG SCH ×3 (09:27→21:02)
[2017-03-03] MEDS: LOSARTAN 25MG TABLET PO SCH ×2 (09:28→21:04)
[2017-03-03] MEDS: CARVEDILOL 6.25 MG TABLET PO SCH ×2 (09:28→21:02)
[2017-03-03] MEDS: AMIODARONE 200 MG TABLET PO SCH (09:29)
[2017-03-03] MEDS: VALACYCLOVIR 500MG TABLET PO SCH ×2 (09:30→21:02)
[2017-03-03] MEDS ORDERED: FUROSEMIDE 40 MG TABLET PO ONE (09:30)
[2017-03-03] MEDS: ALLOPURINOL 300 MG TABLET PO SCH (09:33)
[2017-03-03] MEDS: CLOPIDOGREL 75 MG TABLET PO SCH (09:34)
[2017-03-03] MEDS: ALBUMIN HUMAN 25% 100 ML IV SCH (09:35)
[2017-03-03] MEDS: FUROSEMIDE 20 MG/2 ML IV SCH (09:35)
[2017-03-03 10:31] LABS: BLOOD UREA NITROGEN 40 mg/dL (7-18)
[2017-03-03] MEDS: ATORVASTATIN 40 MG TABLET PO SCH (21:02)
[2017-03-04] MEDS: HEPARIN 5,000 UNITS/ML, 1ML SQ SCH ×2 (00:36→08:42)
[2017-03-04] MEDS: ALBUTEROL/IPRATROPIUM 2.5MG/0.5MG, 3 ML NPPB SCH ×2 (03:32→07:22)
[2017-03-04 04:58] VITALS: BP 106/49
[2017-03-04] MEDS: GUAIFENESIN 100 MG/5 ML, 10ML UDC NG SCH (08:39)
[2017-03-04] MEDS: AMIODARONE 200 MG TABLET PO SCH (08:40)
[2017-03-04] MEDS: LOSARTAN 25MG TABLET PO SCH (08:40)
[2017-03-04] MEDS: CLOPIDOGREL 75 MG TABLET PO SCH (08:41)
[2017-03-04] MEDS: DOCUSATE 100 MG CAPSULE PO SCH (08:41)
[2017-03-04] MEDS: CARVEDILOL 6.25 MG TABLET PO SCH (08:41)
[2017-03-04] MEDS: ALLOPURINOL 300 MG TABLET PO SCH (08:42)
[2017-03-04] MEDS: VALACYCLOVIR 500MG TABLET PO SCH (08:42)
[2017-03-04] MEDS: SENNOSIDES 8.6 MG TABLET PO SCH (08:42)
[2017-03-04] MEDS: ALBUMIN HUMAN 25% 100 ML IV SCH (09:46)
[2017-03-04] MEDS: FUROSEMIDE 20 MG/2 ML IV SCH (11:08)
[2017-03-04] MEDS ORDERED: FLU VACC QS2017-18 (36MOS+) UP/PF 0.5 ML IM-VACC ONE (13:30)
[2017-03-04] MEDS ORDERED: LOSA50TA6 PO (14:44)
[2017-03-04] MEDS ORDERED: FURO10VI37 IV (14:44)
[2017-03-04] MEDS ORDERED: CARV12.52 PO (14:44)
[2017-03-04] MEDS ORDERED: HEPA50002 SQ (14:44)
[2017-03-04] MEDS ORDERED: AMIO200T42 PO (14:44)
[2017-03-04] MEDS ORDERED: VALA500T PO (14:44)
[2017-03-04] MEDS ORDERED: GUAI100L11 NG (14:44)
[2017-03-04] MEDS ORDERED: NYST1000 PO (14:44)
== END 2017-03-04 15:29 | DRG 207 ==
LOC: ED 05:38 → EDIP 06:38 → 3NE 07:31 → 5SO 10:17 → CCU 02-16 16:41
PROVIDERS: ADMIT Internal Medicine; ATTEND Internal Medicine
PROC: 0BJ08ZZ Inspection of Tracheobronchial Tree, Via Natural or Artificial Opening Endoscopic (ICD-10-PCS; principal; 2017-02-16)
PROC: 0BH17EZ Insertion of Endotracheal Airway into Trachea, Via Natural or Artificial Opening (ICD-10-PCS; 2017-02-16)
PROC: 5A1955Z Respiratory Ventilation, Greater than 96 Consecutive Hours (ICD-10-PCS; 2017-02-16)
PROC: 5A09357 Assistance with Respiratory Ventilation, Less than 24 Consecutive Hours, Continuous Positive Airway Pressure (ICD-10-PCS; 2017-02-24)
PROC: 0T9B70Z Drainage of Bladder with Drainage Device, Via Natural or Artificial Opening (ICD-10-PCS; 2017-02-27)
DX: J96.01 Acute respiratory failure with hypoxia (principal); E44.0 Moderate protein-calorie malnutrition; J18.1 Lobar pneumonia, unspecified organism; I11.0 Hypertensive heart disease with heart failure; N17.9 Acute kidney failure, unspecified; E87.2 Acidosis; I48.91 Unspecified atrial fibrillation; I50.9 Heart failure, unspecified; J44.0 Chronic obstructive pulmonary disease with (acute) lower respiratory infection; Z99.11 Dependence on respirator [ventilator] status; J98.11 Atelectasis; Z68.45 Body mass index [BMI] 70 or greater, adult; I80.8 Phlebitis and thrombophlebitis of other sites; I25.10 Atherosclerotic heart disease of native coronary artery without angina pectoris; E78.5 Hyperlipidemia, unspecified; G89.29 Other chronic pain; G47.33 Obstructive sleep apnea (adult) (pediatric); J20.9 Acute bronchitis, unspecified; K42.9 Umbilical hernia without obstruction or gangrene; K80.20 Calculus of gallbladder without cholecystitis without obstruction; M54.9 Dorsalgia, unspecified; I70.0 Atherosclerosis of aorta; L50.9 Urticaria, unspecified; M17.0 Bilateral primary osteoarthritis of knee; Z51.5 Encounter for palliative care; Z79.02 Long term (current) use of antithrombotics/antiplatelets; Z86.718 Personal history of other venous thrombosis and embolism; Z86.73 Personal history of transient ischemic attack (TIA), and cerebral infarction without residual deficits; Z87.891 Personal history of nicotine dependence; Z95.1 Presence of aortocoronary bypass graft; Z91.041 Radiographic dye allergy status; Z23 Encounter for immunization; Z90.49 Acquired absence of other specified parts of digestive tract; Z88.2 Allergy status to sulfonamides; Z88.8 Allergy status to other drugs, medicaments and biological substances; Z88.1 Allergy status to other antibiotic agents
CPT/HCPCS: 32555; 36415; 36600; 71010; 71250; 74000; 78582; 80048; 80053; 80061; 81001; 81003; 82040; 82803; 82805; 82962; 83036; 83615; 83735; 83880; 84155; 84439; 84443; 84478; 84484; 85025; 87040; 87070; 87081; 87086; 87205; 90686; 90732; 93005; 94002; 94003; 94640; 94660; 94667; 94668; 99291; J0295; J1644; J2250; J2310; J2405; J2704; J3360; J3411; J3475; J3490; J7060; J7620; P9047; A9540; C1751; C9113; C9898; J0282; J0360; J1940; J2270; J2920; J2930; J7030; J7512

== ENCOUNTER → 2017-08-02 | Outpatient (CLI) | payer MEDICARE, OTHER ==
[~2017-08-02] MED LIST changes: +ALLO300T PO; +AMIO200T42 PO; +ATOR40TA78 PO; +CALC1CAP8 PO; +CARV12.52 PO; +CHLO1CAP PO; +CHLO25TA PO; +CHOL10002 PO; +FURO10VI37 IV; +GUAI100L11 NG; +HEPA50002 SQ; +LOSA100T6 PO; +LOSA50TA6 PO; +METH500T7 PO; +MULT-717 PO; +NYST1000 PO; +NYST1POW2 TP; +OMEP-110 PO; +POTA20TA14 PO; +POTA25TA4 PO; +TRAM50TA2 PO; +UBID100C41 PO; +VALA500T PO
[2017-08-02 13:15] LABS: ALANINE AMINOTRANSFERASE 16 U/L (12-78); ANION GAP 7 mmol/L (5-15); CALCIUM 8.7 mg/dL (8.5-10.1); CHLORIDE 102 mmol/L (98-107); CREATININE 1.12 mg/dL (0.55-1.02)
[2017-08-02 13:18] LABS: ALKALINE PHOSPHATASE 89 U/L (45-117); BILIRUBIN,TOTAL 0.5 mg/dL (0.2-1.0); TOTAL PROTEIN 7.7 g/dL (6.4-8.2)
== END | disposition home or self-care (01) ==
LOC: STAR 11:46
PROVIDERS: ATTEND Internal Medicine Gastroenterology
DX: Z01.818 Encounter for other preprocedural examination (principal); R19.7 Diarrhea, unspecified; K57.91 Diverticulosis of intestine, part unspecified, without perforation or abscess with bleeding; K57.92 Diverticulitis of intestine, part unspecified, without perforation or abscess without bleeding
CPT/HCPCS: 36415; 80053; 93005

== ENCOUNTER 2017-08-21 10:41 | Day surgery (SDC) | payer MEDICARE, OTHER ==
[2017-08-21] MEDS ORDERED: LIDOCAINE 1%-EPI 1:100K, 20ML SQ PRN (11:30)
== END 2017-08-21 12:54 ==
LOC: CACL 10:41
PROVIDERS: ATTEND Internal Medicine Cardiovascular Disease
DX: Z45.09 Encounter for adjustment and management of other cardiac device (principal); I63.9 Cerebral infarction, unspecified; I48.0 Paroxysmal atrial fibrillation; E78.2 Mixed hyperlipidemia; I25.10 Atherosclerotic heart disease of native coronary artery without angina pectoris; G47.30 Sleep apnea, unspecified; E66.9 Obesity, unspecified; I10 Essential (primary) hypertension; Z88.6 Allergy status to analgesic agent; Z88.1 Allergy status to other antibiotic agents; Z88.8 Allergy status to other drugs, medicaments and biological substances; Z98.890 Other specified postprocedural states
CPT/HCPCS: 33282; C1764

== ENCOUNTER 2018-11-18 15:56 | Inpatient (IN) | payer MEDICARE, OTHER ==
[~2018-11-18] VITALS: Ht 170.2 cm; Wt 130.0 kg
[2018-11-24 18:10] VITALS: BP 114/68
== END 2018-11-24 19:30 | disposition home health service (06) | DRG 393 ==
LOC: ED 18:14 → EDIP 21:23 → 3NE 22:18
PROVIDERS: ADMIT Internal Medicine; ATTEND Internal Medicine
PROC: 0T9B70Z Drainage of Bladder with Drainage Device, Via Natural or Artificial Opening (ICD-10-PCS; principal; 2018-11-18)
DX: N82.3 Fistula of vagina to large intestine (principal); E43 Unspecified severe protein-calorie malnutrition; K57.20 Diverticulitis of large intestine with perforation and abscess without bleeding; Z68.42 Body mass index [BMI] 45.0-49.9, adult; J96.10 Chronic respiratory failure, unspecified whether with hypoxia or hypercapnia; D64.9 Anemia, unspecified; Z83.3 Family history of diabetes mellitus; Z82.5 Family history of asthma and other chronic lower respiratory diseases; Z82.49 Family history of ischemic heart disease and other diseases of the circulatory system; Z88.3 Allergy status to other anti-infective agents; Z80.3 Family history of malignant neoplasm of breast; Z88.8 Allergy status to other drugs, medicaments and biological substances; Z88.2 Allergy status to sulfonamides; E66.01 Morbid (severe) obesity due to excess calories; E78.5 Hyperlipidemia, unspecified; G89.29 Other chronic pain; M54.9 Dorsalgia, unspecified; I11.0 Hypertensive heart disease with heart failure; I25.10 Atherosclerotic heart disease of native coronary artery without angina pectoris; J44.9 Chronic obstructive pulmonary disease, unspecified; K59.00 Constipation, unspecified; M19.90 Unspecified osteoarthritis, unspecified site; N89.8 Other specified noninflammatory disorders of vagina; Z79.02 Long term (current) use of antithrombotics/antiplatelets; Z80.0 Family history of malignant neoplasm of digestive organs; Z86.14 Personal history of Methicillin resistant Staphylococcus aureus infection; Z86.718 Personal history of other venous thrombosis and embolism; Z86.73 Personal history of transient ischemic attack (TIA), and cerebral infarction without residual deficits; Z87.891 Personal history of nicotine dependence; Z95.1 Presence of aortocoronary bypass graft; Z99.81 Dependence on supplemental oxygen
CPT/HCPCS: 36415; 74177; 80048; 80053; 81003; 83605; 83735; 84100; 85025; 85610; 85730; 87040; 87070; 87077; 87186; 87205; 87210; 87808; 93970; 96361; 96374; 96375; G0378; J0696; J3475; Q9967; J1200; J2270; J2930; J7030; Q0163

== ENCOUNTER → 2019-03-09 | Outpatient (CLI) | payer MEDICARE, OTHER ==
[~2019-03-09] MED LIST changes: +CIPR500T3 PO; +LOSA100T14 PO; -LOSA100T6 PO; +LOSA50TA14 PO; -LOSA50TA6 PO; +METR500T PO
== END | disposition home or self-care (01) ==
LOC: RAD 11:31
PROVIDERS: ATTEND Internal Medicine Critical Care Medicine
DX: R91.8 Other nonspecific abnormal finding of lung field (principal); Z87.891 Personal history of nicotine dependence; Z86.718 Personal history of other venous thrombosis and embolism; Z86.73 Personal history of transient ischemic attack (TIA), and cerebral infarction without residual deficits
CPT/HCPCS: 71250

== ENCOUNTER → 2020-08-29 | Outpatient (CLI) | payer MEDICARE, OTHER ==
[~2020-08-29] MED LIST changes: -CIPR500T3 PO; +CIPR500T4 PO; +METH-639 PO; -METH500T7 PO; -VALA500T PO; +VALA500T8 PO
== END | disposition home or self-care (01) ==
LOC: RAD 12:30
PROVIDERS: ATTEND Nurse Practitioner Family
DX: Z12.2 Encounter for screening for malignant neoplasm of respiratory organs (principal); Z87.891 Personal history of nicotine dependence; R91.8 Other nonspecific abnormal finding of lung field; M25.78 Osteophyte, vertebrae; I70.0 Atherosclerosis of aorta; J98.4 Other disorders of lung
CPT/HCPCS: 71271